=== PATIENT | female | born 1945 | race Caucasian/White ===

== ENCOUNTER 2016-08-19 22:00 | Inpatient (IN) | payer MEDICARE, OTHER ==
--- NOTE | ~2016-08-19 | OP ---
Record Of Operation [facility] [address] [place]. [address] NAME: ANIYAH ALEXANDER : 41 STATUS : ADM IN PAT#: [id number] AGE: 70 ADM/REG DATE : 08/20/16 MR#: [id number] REPORT SERV DATE: 08/21/16 DICTATED BY: KUMAR BEAR DATE: 08/21/16 REPORT STATUS : Draft TRANSCRIBED BY: EDOUARD DATE: 08/21/16 DATE OF PROCEDURE: 08/21/2016 TITLE OF PROCEDURE: Central venous catheter placement. INDICATION: Shock. PROCEDURE NOTE: The patient was placed in Trendelenburg position. The patient's left neck was prepped and draped in sterile fashion. The patient was on Precedex at the time of the procedure for anesthesia. A triple-lumen catheter was introduced into the left internal jugular vein using the Seldinger technique and under ultrasound guidance. The catheter was threaded smoothly over the guidewire, and appropriate blood return was obtained. Guidewire was confirmed to be in the vein via ultrasound. Each lumen of the catheter was evacuated of air and flushed with sterile saline. Catheter was then sutured in place to the skin and sterile dressing applied. I was present for the entire procedure. The patient tolerated the procedure well. There were no complications. Chest x-ray was ordered to assess for pneumothorax. ERIC/EDOUARD Kumar Bear MD / [id number] CC: Shin Serrano M.D.
--- NOTE | ~2016-08-19 | DS ---
Discharge Summary [id number] [facility]. [address] NAME: ANIYAH ALEXANDER : 41 STATUS : ADM IN PAT#: [id number] AGE: 70 ADM/REG DATE : 08/20/16 MR#: [id number] REPORT SERV DATE: 09/01/16 DICTATED BY: ROMAN PEREIRA DATE: 09/01/16 REPORT STATUS : Draft TRANSCRIBED BY: EDOUARD DATE: 09/01/16 ADMISSION DATE: 08/20/2016 DISCHARGE DATE: 09/01/2016 Please see prior interim discharge summary, continuation from that at this point. DISCHARGE DIAGNOSES: 1. Acute on chronic systolic heart failure, on milrinone gtt. 2. Acute on chronic hypoxic respiratory failure, at baseline at 2 L nasal cannula. 3. CREST. 4. Severe pulmonary hypertension. 5. Esophageal stricture. Follow up with GI as an outpatient. 6. Chronic kidney disease stage 2. 7. Hypothyroidism. 8. Chronic pain. 9. Coronary artery disease. 10.Pulmonary fibrosis. DISCHARGE MEDICATIONS: Include: 1. Xanax 1 mg p.o. at bedtime. 2. Artificial tears daily p.r.n. 3. Aspirin 81 mg p.o. daily. 4. Bumex 1 mg p.o. daily. 5. Plavix 75 mg p.o. daily. 6. Vitamin D3, 5000 units p.o. daily. 7. Pepcid 40 mg p.o. at bedtime. 8. Synthroid 88 mcg p.o. daily. 9. Lopressor 25 mg p.o. b.i.d. 10.Zoloft 50 mg p.o. at bedtime. 11.Sodium bicarb 25 p.o. daily. 12.Vitamin A 10,000 units p.o. daily. 13.OxyContin 40 mg p.o. b.i.d. 14.Prednisone taper as directed. 15.DuoNeb 3 mL inhaled q.6 hours while awake. 16.Dulera 200/5 mcg two puffs inhaled b.i.d. 17.GenTeal apply ophthalmic at bedtime. 18.Colace 100 mg p.o. daily. 19.Milrinone gtt. 20.Lutein 40 mg p.o. daily. 21.Probiotic p.o. daily. 22.Nitroglycerin spray p.r.n. chest pain. 23.Stress B liquid 50 mL p.o. daily. 24.Vitamin C 1000 mg p.o. daily. 25.Silver Shield inhaled at bedtime. DISPOSITION AND FOLLOWUP: The patient medically stable for discharge. Follow up with Discharge Summary [address] [place]. [address] NAME: ANIYAH ALEXANDER : 41 STATUS : ADM IN PAT#: [id number] AGE: 70 ADM/REG DATE : 08/20/16 MR#: [id number] REPORT SERV DATE: 09/01/16 DICTATED BY: ROMAN PEREIRA DATE: 09/01/16 REPORT STATUS : Draft TRANSCRIBED BY: EDOUARD DATE: 09/01/16 primary care physician in one week. Follow up with Cardiology as directed and Gastroenterology as directed. The patient will be discharged on milrinone gtt. PICC line was placed on 08/31/2016. HISTORY AND PHYSICAL: Per initial assessment. DISCHARGE VITALS: Temperature 97.8, heart rate 85, blood pressure 130/59, respiratory rate 18, O2 saturation 95 on 2 L nasal cannula. IMAGING: Chest x-ray, 08/29/2016, significant interval reduction in perihilar edema over the last 48 hours. Pulmonary fibrosis. HOSPITAL COURSE: Please see prior interim discharge summary for further details. Follow with Cardiology and recommended milrinone home infusion, which the patient was agreeable to. A PICC line was placed on 08/31. Case Management arranged home infusion. As directed above, the patient will follow up with primary care physician in one week. Follow up with Cardiology as directed. Follow up with GI as an outpatient for further management and possible dilatation of esophageal stricture. Instructed to take all medications as above. Further close management as an outpatient. Total time for discharge planning 35 minutes. JOSE JUAN/EDOUARD Eloisa Riley MD / [id number] CC: MD Preet Lubin M.D.
--- NOTE | ~2016-08-19 | HP ---
History And Physical [address] [place]. [address] NAME: ANIYAH ALEXANDER : 41 STATUS : ADM IN [facility]#: [id number] AGE: 70 ADM/REG DATE : 08/20/16 MR#: [id number] REPORT SERV DATE: 08/20/16 DICTATED BY: SHALOM VENEGAS DATE: 08/20/16 REPORT STATUS : Draft TRANSCRIBED BY: MODL DATE: 08/20/16 DATE OF ADMISSION: 08/20/2016 CHIEF COMPLAINT: Shortness of breath. HISTORY OF PRESENT ILLNESS: This is a 70-year-old female with a history of pulmonary fibrosis and is followed by Dr. Sameer Yousif, history of chronic systolic congestive heart failure, essential hypertension, anxiety disorder, and esophageal strictures followed by Dr. Horvath, who presents to the emergency room at [facility] with the above-mentioned complaint. History is obtained from the patient, and reviewing data available on the [facility] System. According to Mrs. Alexander, she had been ill for about a xrry-zka-[id number]-half now saying that she had a viral illness about a week ago and it took five to seven days after which she feels she developed a pneumonia. She started having shortness of breath initially with exertion and then towards the 24 hours or so, she was short of breath even at rest. She also started having fever up to 102 degrees Fahrenheit in the last 24 hours and had some shaking chills as well. During this time, she also had a cough which was productive of dirty-looking sputum according to her which she then describes as being milky whitish. She finally decided to come to the emergency room to be evaluated. In the emergency room, a chest x-ray revealed bilateral infiltrates, but an EKG was within normal limits. She had hypoxia upon presentation along with a febrile illness, and Hospitalist Service is asked to admit her for further evaluation and treatment. At the time of my evaluation, her blood pressure has dropped from 145/66 upon arrival to 102/59. She had hypoxia on room air, although with oxygen saturations return. She continued to have dyspnea at rest. She denied any chest pain or palpitations. She had no orthopnea. She did have a cough, which was essentially productive of greenish sputum here. No hemoptysis or night sweats or weight loss. She has not had any falls or loss of consciousness recently, but did have fever and chills going up to 102 degrees as mentioned above. She denied any nausea, vomiting, diarrhea, hematemesis, hematochezia, or hematuria. No other history of recent travel or exposure other than those mentioned above. PAST MEDICAL HISTORY: Significant for history of essential hypertension, esophageal strictures, chronic hypoxic respiratory failure on home oxygen at 3 L/minute. She also has history of pulmonary fibrosis followed by Dr. Yousif and history of chronic systolic heart failure. SOCIAL HISTORY: She denied any tobacco use, alcohol use, recreational drug use. 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 FAMILY HISTORY: Noncontributory. MEDICATIONS: Her medications at home were reviewed by me in the chart today and reordered by me. History And Physical [address] [address] NAME: ANIYAH ALEXANDER : 41 STATUS : ADM IN [facility]#: [id number] AGE: 70 ADM/REG DATE : 08/20/16 MR#: [id number] REPORT SERV DATE: 08/20/16 DICTATED BY: SHALOM VENEGAS DATE: 08/20/16 REPORT STATUS : Draft TRANSCRIBED BY: EDOUARD DATE: 08/20/16 REVIEW OF SYSTEMS: As in history of present illness. All other systems were reviewed in detail and are quite unremarkable. PHYSICAL EXAMINATION: GENERAL: This is a pleasant 70-year-old, not in any acute distress. HEENT: Her head is atraumatic and normocephalic. She is alert, awake, oriented to time, place, and person. Her pupils are equal, reacting to light and accommodating. External ocular muscles are intact. Membranes are moist and pink. Sclerae are nonicteric. NECK: Supple with no jugular venous distention, lymphadenopathy, or thyromegaly. LUNGS: Auscultation of her lungs revealed bibasilar crackles with no expiratory wheezes. There were no rales, especially there were no Velcro rales. Trachea appeared to be in the midline. HEART: Heart sounds were regular with no murmurs, rubs, or gallops. ABDOMEN: Soft and nontender. Bowel sounds are present. EXTREMITIES: No cyanosis, clubbing, or edema. NEUROLOGIC: Grossly intact. No focal sensory or motor deficits. Higher functions appeared intact. Gait was not examined. VITAL SIGNS: Today showed a temperature of 102.4 upon arrival, pulse was 86, respirations 22 a minute, and blood pressure upon arrival was 145/66. Oxygen saturations were 97%, breathing 4 L of oxygen via nasal cannula. LABORATORY DATA: Reviewed on the [facility] system showed a sodium of 136, potassium 4.4, chloride 106, CO2 of 27, BUN was 19 with a creatinine of 0.84, and blood glucose was 118. Her alkaline phosphatase, ALT, and AST were within normal limits. Her lipase was 121. Her lactate was 1.2 today. CBC showed a white blood cell count of 8400, hemoglobin was 10, hematocrit 31.7, and platelet count was 201,000. Her prothrombin time was 13.8 with an INR of 1.1 today. Influenza A and B were negative today. Urinalysis was unremarkable today. Films of the chest x-ray were reviewed by me on the PACS today and interpreted by me. Per my interpretation, bibasilar infiltrates, right greater than left, with no cardiomegaly. A 12-lead EKG done in the emergency room was reviewed and interpreted by me. There is normal sinus rhythm with a rate of [address]-T changes. IMPRESSION: 1. Shortness of breath. 2. Bilateral pneumonia. 3. Hypoxemia. 4. Hypotension. 5. Possible sepsis. History And Physical [address] [address] NAME: ANIYAH ALEXANDER : 41 STATUS : ADM IN [facility]#: [id number] AGE: 70 ADM/REG DATE : 08/20/16 MR#: [id number] REPORT SERV DATE: 08/20/16 DICTATED BY: SHALOM VENEGAS DATE: 08/20/16 REPORT STATUS : Draft TRANSCRIBED BY: MODL DATE: 08/20/16 6. History of pulmonary fibrosis. 7. Chronic systolic heart failure. 8. Essential hypertension. PLAN: We will admit Mrs. Alexander to the Hospitalist Service with telemetry in the Medical Intermediate Care Unit. Since my initial evaluation of her, she has become increasingly hypotensive and this required multiple fluid challenges. Her pressures have responded to volume replacement, but we will continue to monitor her situation. She would benefit from a central line placement, but she is on Plavix and I am hesitant to do that right now. We will go ahead and order a PICC line to be placed in the morning. Meanwhile, we will monitor her pressures closely, repeat lactate and procalcitonin levels. We will also check her cortisol level and replace if necessary. Meanwhile, we will maximize the bronchodilator treatments, continue supplemental oxygen therapy, and also add mucolytics to her regimen. Given her history of pulmonary fibrosis and there are bilateral infiltrates present on the chest x-ray, we will go ahead and get a CTA of her chest to further evaluate abnormality seen on the chest x-ray. I believe her infiltrates may be secondary to infection rather than pulmonary fibrosis. We will review the chest CT as soon as it is done. She may need IV pressors if her mean arterial pressures should fall below 65 mmHg, but right now it is in the 70-72 range. We will give another liter of lactated Ringer's bolus with some response and we will repeat another liter as well. She is making urine and we will monitor her closely. It is best she would be admitted in the Medical Intermediate Care Unit. Meanwhile, we will continue the rest of her home medications and treatments, and please see the orders for details. She will be on unfractionated heparin for DVT prophylaxis while here. I have discussed the above plans with the patient. Her questions were answered and she is agreeable to the above recommendations. Hospitalist Service will be following her during her stay here. /MODL Shalom Venegas M.D. / [id number] CC: David Mendez M.D.
--- NOTE | ~2016-08-19 | IDS ---
Interim Discharge Summary [facility] [address] [place]. [address] NAME: ANIYAH ALEXANDER : 41 STATUS : ADM IN LOCATED WITHIN [facility]#: [id number] AGE: 70 ADM/REG DATE : 08/20/16 MR#: [id number] REPORT SERV DATE: 08/28/16 DICTATED BY: ARIAN GIBBONS DATE: 08/28/16 REPORT STATUS : Draft TRANSCRIBED BY: MODKimani DATE: 08/28/16 ADMISSION DATE: 08/20/2016 DISCHARGE DATE: DIAGNOSES: 1. Acute on chronic hypoxic respiratory failure. 2. Acute on chronic systolic heart failure. 3. Septic shock. 4. Right upper and right lower lobe pneumonia. 5. Acute kidney injury. 6. Esophageal dilation. 7. Severe pulmonary hypertension. 8. CREST. PROCEDURES: Endotracheal intubation on 08/21/2016, left internal jugular vein triple-lumen catheter placed 08/21/2016. IV drips. The patient is currently on Milrinone drip per Cardiology. CONSULTANTS: Cardiology Dr. Mcenil. DESCRIPTION: Please see initial history and physical by Dr. Raymundo on August [address] Bear's critical care consultation on August 21. The patient was sent to the ICU, in respiratory failure requiring intubation and mechanical ventilation. Also had to be on pressors for septic shock. The patient was on broad-spectrum antibiotics that include vancomycin and Zosyn. Cultures from the blood and sputum did not grow anything, so the vancomycin was discontinued pretty early on and the patient completed a complete course of 7 days of Zosyn. Pressors mainly Levophed. Eventually she was able to be weaned off. A 2D echocardiogram on this admission showed evidence of worsening systolic heart failure with EF of 25% to 30%, poor LV function, and also there was significant decreased function of the right ventricle and severe pulmonary hypertension and moderate to severe tricuspid regurgitation. The patient was able to successfully be extubated before I came on service this week. I reviewed her echocardiogram and decided to consult Cardiology. The patient has history of coronary artery disease and stents in the past. Dr. Mcneil came by and put the patient on Milrinone drip and has been on that for the past few days. He said it was okay for this patient to go to the floor on the Milrinone. She does have what looks like going back through her old CT scan before I came on service, evidence of esophageal dilation and fluid in the esophagus. Before the patient is discharged since she is more stable, the patient should probably see GI doctor to see if the patient has ever had an EGD or in case she needed to be scoped before discharge. The last EGD that I see is from March 2016, showing a benign-appearing esophageal stricture, erosive esophagitis, hiatal hernia, and the esophagus was dilated at that time. The patient also has a history of CREST syndrome and what appears to be some interstitial fibrosis based on CAT scan. She is currently going for a telemetry bed and care will be picked up by the hospitalist service upon transfer. Interim Discharge Summary [address] [place]. [address] NAME: ANIYAH ALEXANDER : 41 STATUS : ADM IN LOCATED WITHIN [facility]#: [id number] AGE: 70 ADM/REG DATE : 08/20/16 MR#: [id number] REPORT SERV DATE: 08/28/16 DICTATED BY: ARIAN GIBBONS DATE: 08/28/16 REPORT STATUS : Draft TRANSCRIBED BY: MODL DATE: 08/28/16 CEP/EDOUARD Arian Gibbons DO / [id number] CC: David Duron M.D.
--- NOTE | ~2016-08-19 | CN ---
Consultation Report [facility] [address] [place]. [address] NAME: ANIYAH ALEXANDER : 41 STATUS : ADM IN PAT#: [id number] AGE: 70 ADM/REG DATE : 08/20/16 MR#: [id number] REPORT SERV DATE: 08/29/16 DICTATED BY: HARJINDER MORALES DATE: 08/29/16 REPORT STATUS : Draft TRANSCRIBED BY: MODL DATE: 08/29/16 CONSULT DATE OF CONSULTATION: This patient is known to me with CREST syndrome. She has a severe grade 4 erosive esophagitis and stricture formation. She gets dilated about every 4 to 6 months. Last dilatation was March 2016. She is on high dose PPI. Apparently she was admitted here with septic shock and pneumonia. She also has poor cardiac function. She has pulmonary hypertension. She seems at this point that she is swallowing reasonably well. It is not clear if she aspirated this time. She was ventilator-dependent for a few days here and is now doing better. PHYSICAL EXAMINATION: GENERAL: On exam, she is sitting up. VITAL SIGNS: Blood pressure 110/70. ABDOMEN: Quite soft. Nontender. IMPRESSION: Patient with connective tissue disease such as CREST or actually may have more involvement than just the CREST; may have more scleroderma as opposed to the lung problem. Has been doing well with dilatation. Right now she is swallowing reasonably well on high- dose PPI. She probably needs dilatation at some point, but I am unclear whether that should be accomplished here or as an outpatient. Allow maximal medical tune-up. PLAN: We will discuss with the care team. My feeling now would be that it might be better to let her have medical tune-up and see how she does given the fact that she had a recent cardiopulmonary issues. She seems to be doing well with a soft diet and we need to put her through the sedation for an endoscopic procedure which could require re-intubation. MG/MODKimani Harjinder Morales M.D. / [id number] CC: Shin Serrano M.D.
--- NOTE | ~2016-08-19 | OP ---
Record Of Operation [facility] [address] [place]. [address] NAME: ANIYAH ALEXANDER : 41 STATUS : ADM IN [facility]#: [id number] AGE: 70 ADM/REG DATE : 08/20/16 MR#: [id number] REPORT SERV DATE: 08/21/16 DICTATED BY: KUMAR BEAR DATE: 08/21/16 REPORT STATUS : Draft TRANSCRIBED BY: EDOUARD DATE: 08/21/16 DATE OF PROCEDURE: 08/21/2016 TITLE OF PROCEDURE: Endotracheal intubation. INDICATION: Respiratory failure. PROCEDURE NOTE: The patient was placed in a flat position. Sedation was obtained using a 100 mg of propofol. The patient was easily ventilated using an Ambu bag. The GlideScope was used and inserted into the oropharynx, at which time, there was a grade 2 view of the vocal cords. A 7.[place] endotracheal tube was inserted and visualized going through the vocal cords. The stylet was removed. Colorimetric change was visualized on the CO2 meter. Breath sounds were heard in both lung vigil bilaterally. Endotracheal tube was placed at 23 cm, measured at the teeth. I was present for the entire procedure. Chest x-ray is ordered to assess for pneumothorax and verify endotracheal tube placement. The patient tolerated the procedure well, and there were no complications. ERIC/EDOUARD Kumar Bear MD / [id number] CC: Shin Serrano M.D.
--- NOTE | ~2016-08-19 | CN ---
Consultation Report [facility] [address] [place]. [address] NAME: ANIYAH ALEXANDER : 41 STATUS : ADM IN [facility]#: [id number] AGE: 70 ADM/REG DATE : 08/20/16 MR#: [id number] REPORT SERV DATE: 08/26/16 DICTATED BY: YVES MCNEIL DATE: 08/26/16 REPORT STATUS : Draft TRANSCRIBED BY: MODL DATE: 08/26/16 CARDIOLOGY CONSULTATION DATE OF CONSULTATION: HISTORY OF PRESENT ILLNESS: The patient is a 70-year-old white female with a history of coronary artery disease. The patient had a cardiac catheterization by Dr. Beard in 2013 that showed patent stents in the left anterior descending coronary artery and left circumflex coronary artery. At that time, her left ventricular ejection fraction was 45%. The patient presented on this admission with pneumonia, respiratory failure, and sepsis. She is currently on antibiotics, but no pressors or inotropes. Her BNP has gone up to 3187 with a previous BNP being 2011. The patient denies chest pain. Echocardiogram done during this admission shows a left ventricular ejection fraction of 25% to 30%. PAST MEDICAL HISTORY: Remarkable for coronary artery disease with multivessel stenting, COPD, hypertension, and chronic lung disease. SOCIAL HISTORY: The patient does not smoke. FAMILY HISTORY: Positive for coronary artery disease. REVIEW OF SYSTEMS: The patient has a nonproductive cough. She does not have any nausea, vomiting, diarrhea, or dysuria. PHYSICAL EXAMINATION: VITAL SIGNS: Blood pressure is 150/70, heart rate is 80 and regular, respirations 18 and mildly dyspneic. ENT: Unremarkable. NECK: Shows no jugular venous distention with good carotid upstroke. CHEST: Remarkable for basilar rales. CARDIOVASCULAR: The PMI is lateral to mid clavicular line. S1 is normal. S2 is narrowly split. An S3 is present. ABDOMEN: Soft, nontender with normal bowel sounds. EXTREMITIES: Show no cyanosis, clubbing, or edema. SKIN: Warm and dry with no pallor or icterus. NEURO/PSYCH: The patient is oriented x3 with appropriate affect. LABORATORY DATA: BUN is 19, creatinine 0.84, potassium is 4.4. Hematocrit is 33.9. EKG shows sinus rhythm with an inferior scar and nonspecific ST-T changes. IMPRESSION: 1. Acute on chronic systolic congestive heart failure. 2. Coronary artery disease with a history of multivessel stenting. Consultation Report [address] [place]. [address] NAME: ANIYAH ALEXANDER : 41 STATUS : ADM IN PAT#: [id number] AGE: 70 ADM/REG DATE : 08/20/16 MR#: [id number] REPORT SERV DATE: 08/26/16 DICTATED BY: YVES MCNEIL DATE: 08/26/16 REPORT STATUS : Draft TRANSCRIBED BY: DEOUARD DATE: 08/26/16 3. Pneumonia and sepsis. PLAN: 1. We will begin milrinone and give IV diuretics. 2. Consider RUDY inhibitor or angiotensin converting enzyme inhibitor if blood pressure remains stable. Thank you very much for this consultation. FLORIN/EDOUARD Yves Mcneil M.D., F.A.C.C. / [id number] CC: David Duron M.D.
--- NOTE | ~2016-08-19 | CN ---
Consultation Report [facility] [address] [place]. [address] NAME: ANIYAH ALEXANDER : 41 STATUS : ADM IN PAT#: [id number] AGE: 70 ADM/REG DATE : 08/20/16 MR#: [id number] REPORT SERV DATE: 08/21/16 DICTATED BY: KUMAR BEAR DATE: 08/21/16 REPORT STATUS : Draft TRANSCRIBED BY: MODL DATE: 08/21/16 CONSULT NOTE DATE OF CONSULTATION: 08/21/2016 REASON FOR CONSULTATION: Respiratory failure. HISTORY OF PRESENT ILLNESS: The patient is a 70-year-old white female with a past medical history of chronic hypoxic respiratory failure thought to be secondary to chronic aspiration with possible underlying interstitial fibrosis as well as a history of crest syndrome and history of chronic esophageal strictures who presented to the emergency room yesterday on 08/20/2016 with about a week, week and a half of illnesses initially started as a viral upper respiratory tract infection symptoms and then progressed to worsening shortness of breath for the last day or two accompanied by fevers up to 102 degrees as well as shaking, chills, and a cough productive of dirty looking sputum, which is also at times milky white. The patient came to the emergency room yesterday, and at that time, had a chest x-ray showing bilateral infiltrates. She was placed on empiric antibiotics, admitted to the Hospitalist Service in the [facility], and was observed overnight. Today, apparently, she initially was doing well and then as the evening progressed, she slowly became more hypoxic and short of breath. I was called to evaluate the patient, and when I arrived, she was on BiPAP and had a respiratory rate of about 50 and was barely maintaining saturations in the high 80s. I elected at that time to move her to the Medical Intensive Care Unit and intubate the patient (see separate dictated intubation note) as well as place a central line for shock status post intubation (see separate dictated central venous catheter placement note). The patient now is in the Intensive Care Unit under my care for respiratory failure and shock. PAST MEDICAL HISTORY: 1. Chronic hypoxic respiratory failure. 2. Chronic aspiration. 3. Questionable history of underlying interstitial fibrosis. 4. History of crest syndrome. 5. Fibromyalgia. 6. Systolic congestive heart failure. 7. History of esophageal stricture, status post dilatation in March 2016. 8. Obstructive sleep apnea. 9. Chronic pain. 10.Coronary artery disease, status post PCI x6. 11.Hypothyroidism. 12.Gastroesophageal reflux disease. 13.Chronic anxiety. 14.Hypertension. 15.History of hysterectomy. 16.History of cyst removal. Consultation Report [facility] [id number] [place]. [address] NAME: ANIYAH ALEXANDER : 41 STATUS : ADM IN [facility]#: [id number] AGE: 70 ADM/REG DATE : 08/20/16 MR#: [id number] REPORT SERV DATE: 08/21/16 DICTATED BY: KUMAR BEAR DATE: 08/21/16 REPORT STATUS : Draft TRANSCRIBED BY: EDOUARD DATE: 08/21/16 ALLERGIES: INCLUDE SULFA AND CLARITHROMYCIN. HOME MEDICATIONS: See medication reconciliation form. SOCIAL HISTORY: Lives with her . No tobacco, alcohol, or IV drug abuse. FAMILY HISTORY: Per the , no family history of lung disease or coronary disease. REVIEW OF SYSTEMS: Unable to obtain secondary to intubation and sedation. PHYSICAL EXAMINATION: VITAL SIGNS: Temperature 98.8, heart rate 130, respiratory rate 24, and blood pressure 68/42. GENERAL: Now sedated and intubated. HEENT: Pupils equal, round, and reactive to light. ET tube in place. NECK: Supple. Nontender. No lymphadenopathy. No thyromegaly. No jugular venous distention. LUNGS: Coarse breath sounds bilaterally. No wheezes or crackles throughout. CARDIOVASCULAR: Tachycardic. No murmurs, rubs, or gallops. ABDOMEN: Soft, nontender, nondistended. Positive bowel sounds. No hepatosplenomegaly. EXTREMITIES: No cyanosis, clubbing, or edema. NEURO: Sedated. PSYCH: Unable to assess. LABS AND IMAGING: Chest x-ray, status post intubations shows central venous line and ET tube in good position. She has multifocal diffuse bilateral infiltrates. Post intubation blood gas with a pH of 7.34, pCO2 of 41, and PO2 of 140. Metabolic profile unremarkable. CBC with a white count of 5, hemoglobin of 10. Urine Strep pneumo antigen negative. Urine Legionella antigen negative. ASSESSMENT AND PLAN: The patient is a 70-year-old female with past medical history of chronic aspiration with chronic hypoxic respiratory failure, history of CREST syndrome, and coronary disease, who presents with several days of shortness of breath, productive cough, and fevers, thought to be pneumonia and now with hypoxic respiratory failure, acute respiratory distress syndrome, and shock. 1. Acute hypoxic respiratory failure. The patient has evidence of acute respiratory distress syndrome likely secondary to pneumonia. She was initially on Rocephin and azithromycin. Review of the records show that she was in the hospital just about three months ago so I am going to broaden out her coverage, change her to vancomycin, Zosyn, and continue the azithromycin so that we cover for aspiration, possible hospital acquired pneumonia, as well as community-acquired pneumonia. We will get a sputum culture now that she is intubated. I currently have her on high PEEP of a PEEP of 10 and FiO2 of 100%. We will wean her FiO2 tonight as tolerated. We will decrease her Consultation Report [facility] [id number] [facility] [place]. [address] NAME: ANIYAH ALEXANDER : 41 STATUS : ADM IN [facility]#: [id number] AGE: 70 ADM/REG DATE : 08/20/16 MR#: [id number] REPORT SERV DATE: 08/21/16 DICTATED BY: KUMAR BEAR DATE: 08/21/16 REPORT STATUS : Draft TRANSCRIBED BY: EDOUARD DATE: 08/21/16 tidal volume further to put her on lung protective ventilation for her ARDS. We will get a followup chest x-ray in the morning. I will also like to place her on steroids for possible severe community-acquired pneumonia as well as early ARDS as there is some data to support the use of steroids in both of these cases. 2. Shock. Shortly after intubation, the patient's blood pressure dropped to systolic in the 60s. Currently, giving her a fluid bolus. On my bedside ultrasound, her IVC was 1.7 cm but had collapsing to 0.8 cm on inspiration suggesting that she would be a volume responder. With this fluid bolus, I am also going to start a Levophed drip to maintain her MAP greater than 65. Likely, she is just volume depleted, but this could be a component of septic shock as well. If needed, we will add further vasopressor therapy tonight. 3. The patient will be on heparin for DVT prophylaxis and Protonix for gastrointestinal prophylaxis. 4. The patient's was updated at the bedside. The severity of the illness was discussed, and he understands. She remains full code at this time. 5. Total critical care time spent on this patient not including endotracheal intubation or central venous catheter placement was 50 minutes. ERIC/EDOUARD Kumar Bear MD / [id number] CC: Shin Serrano M.D.
[2016-08-19 17:35] LABS: BASOPHILS 0.1 %; BASOPHILS ABSOLUTE 0.01 10/3/uL (0.0-0.16); EOSINOPHILS 1.9 %; EOSINOPHILS ABSOLUTE 0.16 10/3/uL (0.0-0.53); HEMATOCRIT 31.7 % (36.0-48.0); IMMATURE GRANULOCYTES 0.2 %; IMMATURE GRANULOCYTES ABSOLUTE 0.02 10/3/uL (0.0-0.11); LYMPHOCYTES ABSOLUTE 1.26 10/3/uL (0.67-4.30); MEAN CORPUSCULAR HEMOGLOB 30.9 pg (26.0-34.0); MEAN CORPUSCULAR VOLUME 97.8 fL (80-100); MEAN PLATELET VOLUME 10.4 fL (9.2-13.0); MONOCYTES 5.5 %; MONOCYTES ABSOLUTE 0.46 10/3/uL (0.21-1.20); NEUTROPHILS 77.3 %; NEUTROPHILS ABSOLUTE 6.48 10/3/uL (2.02-8.40); RBC DISTRIBUTION WIDTH 15.9 % (12.0-16.0); RED CELL COUNT 3.24 10/6/uL (4.0-5.6); WHITE BLOOD CELLS 8.4 10/3/uL (4.5-10.5)
[2016-08-19 17:36] LABS: MANUAL DIFF NO %; MEAN CORPUS HGB CONC 31.5 g/dL (32.0-36.0); PLATELET COUNT 201 10/3/uL (150-400)
[2016-08-19 17:44] LABS: INTERNATIONAL NORMAL RATI 1.1 UNITS (-); PARTIAL THROMBO TIME 30.6 SEC (22.5-37.2); PROTIME (NOT ORD) 13.8 SEC (12.0-14.5)
[2016-08-19 17:57] LABS: LACTATE 1.2 MMOL/L (0.3-2.4)
[2016-08-19 17:58] LABS: A/G RATIO 0.8 (0.7-1.9); ALBUMIN 3.3 G/DL (3.5-5.0); ALKALINE PHOSPHATASE 104 U/L (45-117); BUN (BLOOD UREA NITROGEN) 19 MG/DL (6-23); CALCIUM, SERUM 8.4 MG/DL (8.5-10.4); CHLORIDE, SERUM 106 MMOL/L (96-112); CO2 (CARBON DIOXIDE) 27 MMOL/L (24-34); CREATININE 0.84 MG/DL (0.55-1.02); GFR AFRICAN AMERICAN 80 ML/MIN (>=60); GFR NON AFRICAN AMERICAN 69 ML/MIN (>=60); GLOBULIN 3.9 G/DL (2.5-4.1); GLUCOSE, SERUM 118 MG/DL (60-99); POTASSIUM, SERUM 4.4 MMOL/L (3.5-5.3); SGOT(AST) 25 U/L (5-40); SGPT(ALT) 16 U/L (5-65); SODIUM, SERUM 136 MMOL/L (135-148); TOTAL BILIRUBIN 0.4 MG/DL (0-1.2); TOTAL PROTEIN 7.2 G/DL (6.0-8.5)
[2016-08-19 20:54] LABS: INFLUENZA A SCREEN NEGATIVE (NEGATIVE); INFLUENZA B SCREEN NEGATIVE (NEGATIVE)
[2016-08-19 21:29] LABS: WBC (NOT ORDERED) (RFLEX) 0 (0-5)
[2016-08-19 21:39] LABS: ASCORBIC ACID (UR NOT ORDER) 40 (NEG); BILIRUBIN, URINE NEGATIVE (NEG); ER URINALYSIS TAT 0 Hrs 11 Mins; KETONE, URINE NEGATIVE (NEG); LEUKOCYTE ESTERASE(NOT OR NEG (NEG); NITRITE (URINE) NEG (NEG)
[~2016-08-19 22:00] MED LIST: ACCUNEB INH; ACIDOPHILU1 PO; ACIDOPHILU2 PO; ADVIL PO; ALBUTEROL5 INH; ALTA2.5 PO; ASAB PO; ATROVENTUD INH; AUG875 PO; BACTROINT TOP; BIST PO; BRILINTA90 MG PO; COUGH SYRUP PO; CYANOCOBALAMIN PO; D.O.S.100 MG PO; DELESTROGEN40 MG/ML IM; DEMA20 PO; DIL2TAB PO; DSS PO; DUONEB INH; GENTEA1 OP; GENTEA2 OPH; GENTEAL 15 ML O15 ML OPH; GENTEAL0.3 % OP; HALF81 PO; HYDROCODONE PO; IBU400 PO; L20 PO; L40 PO; LEVAQUIN750 MG PO; LEVOTHYROXIN88 MCG PO; LIPITOR10 PO; LOP25 PO; LOP50 PO; LORTAB10 PO; LUTEIN1 CAP PO; LUTEIN20 MG PO; MD ANDERSON PO; MEGACEUDL PO; MONODOX100 MG PO; MULTIPLE VIT PO; NEXIUM40 MG PO; NEXIUM40 PO; NITROGLYCERIN SPRAY SL; NITROMIST400 MCG SL; NITROQUICK0.4 MG SL; NITROSPRAY SL; NITROSTAT0.4 MG SL; NORV25 PO; NORV5 PO; NTG150 SL; OMNICEF300 PO; OXYCON10 PO; OXYCON40 PO; P10; P20 PO; PCET PO; PEPCID40 MG PO; PLAQ200B PO; PLAVIX PO; PRILOSEC40 MG PO; PROBIOTIC OTC PO; PROBIOTIC PO; REFRESH OPH; REFRESH OPH SO0.3 ML OPH; REFRESH1 % OP; RIFADIN150 MG PO; SB325 PO; SENTAB PO; SILVER SHIELD INH; STRESS B; STRESS B PO; SYN075 PO; SYN88 PO; SYSTAN1 OPH; T PO; TEARS NATURA OPH; VARIOUS VITAMINS; VIB100 PO; VIT B-SIX 50 MG50 MG OR; VITA10 PO; VITAMIN B 6 PO; VITAMIN B-121000 MC1 SL; VITAMIN B-6 PO; VITAMIN B-625 MG OR; VITAMIN B-625 MG PO; VITAMIN C PO; VITAMIN D1000 UNI1 PO; VITAMIN D3 PO; VITAMIN D31000 UNIT PO; VITAMIN E PO; VITC500 PO; VITE1000 PO; Vitamin C PO; X5 PO; XANAX1 MG PO; ZEGERID PO; ZEGERID1 CA1 PO; ZESTRIL40 MG PO; ZOCOR10 PO; ZOCOR20 PO; ZOL100 PO; ZOL50 PO; [UNRECOGNIZED DRUG - OTHER]; [UNRECOGNIZED DRUG - OTHER]; [UNRECOGNIZED DRUG - OTHER] INH; [UNRECOGNIZED DRUG - OTHER] OR; [UNRECOGNIZED DRUG - OTHER] PO; [UNRECOGNIZED DRUG - OTHER] PO; [UNRECOGNIZED DRUG - OTHER] PO; [UNRECOGNIZED DRUG - OTHER] PO; [UNRECOGNIZED DRUG - OTHER] TOP; [UNRECOGNIZED DRUG - OTHER] TOP
[2016-08-19] MEDS ORDERED: DSS PO (22:01)
[2016-08-19] MEDS ORDERED: L20 PO (22:01)
[2016-08-19] MEDS ORDERED: GENTEA2 OPH (22:02)
[2016-08-20 03:39] LABS: PROCALCITONIN <0.05 ng/mL (<0.5)
[2016-08-20 10:49] LABS: BASOPHILS 0.1 %; BASOPHILS ABSOLUTE 0.01 10/3/uL (0.0-0.16); EOSINOPHILS 0.1 %; EOSINOPHILS ABSOLUTE 0.01 10/3/uL (0.0-0.53); HEMATOCRIT 33.9 % (36.0-48.0); HEMOGLOBIN 10.5 g/dL (12.0-16.0); IMMATURE GRANULOCYTES 0.1 %; IMMATURE GRANULOCYTES ABSOLUTE 0.01 10/3/uL (0.0-0.11); LYMPHOCYTES 10.3 %; LYMPHOCYTES ABSOLUTE 0.72 10/3/uL (0.67-4.30); MEAN CORPUSCULAR HEMOGLOB 30.9 pg (26.0-34.0); MEAN CORPUSCULAR VOLUME 99.7 fL (80-100); MEAN PLATELET VOLUME 10.4 fL (9.2-13.0); MONOCYTES 2.2 %; MONOCYTES ABSOLUTE 0.15 10/3/uL (0.21-1.20); NEUTROPHILS 87.2 %; NEUTROPHILS ABSOLUTE 6.07 10/3/uL (2.02-8.40); PLATELET COUNT 177 10/3/uL (150-400); RBC DISTRIBUTION WIDTH 16.1 % (12.0-16.0)
[2016-08-20 10:50] LABS: MANUAL DIFF NO %
[2016-08-20 11:00] LABS: BUN (BLOOD UREA NITROGEN) 16 MG/DL (6-23); CALCIUM, SERUM 8.4 MG/DL (8.5-10.4); CHLORIDE, SERUM 113 MMOL/L (96-112); CO2 (CARBON DIOXIDE) 27 MMOL/L (24-34); CREATININE 0.76 MG/DL (0.55-1.02); GFR AFRICAN AMERICAN 91 ML/MIN (>=60); GFR NON AFRICAN AMERICAN 78 ML/MIN (>=60); GLUCOSE, SERUM 127 MG/DL (60-99); PHOSPHORUS, SERUM 2.8 MG/DL (2.5-4.5)
[2016-08-20 11:01] LABS: SODIUM, SERUM 145 MMOL/L (135-148)
[2016-08-21 05:34] LABS: BUN (BLOOD UREA NITROGEN) 14 MG/DL (6-23); CHLORIDE, SERUM 114 MMOL/L (96-112); CO2 (CARBON DIOXIDE) 25 MMOL/L (24-34); CREATININE 0.58 MG/DL (0.55-1.02); GFR AFRICAN AMERICAN 107 ML/MIN (>=60); GFR NON AFRICAN AMERICAN 92 ML/MIN (>=60); GLUCOSE, SERUM 118 MG/DL (60-99); PHOSPHORUS, SERUM 3.6 MG/DL (2.5-4.5); POTASSIUM, SERUM 4.3 MMOL/L (3.5-5.3); SODIUM, SERUM 146 MMOL/L (135-148)
[2016-08-21 06:01] LABS: BASOPHILS 0 %; EOSINOPHILS 0 %; HEMATOCRIT 33.5 % (36.0-48.0); HEMOGLOBIN 10.3 g/dL (12.0-16.0); IMMATURE GRANULOCYTES 0.2 %; IMMATURE GRANULOCYTES ABSOLUTE 0.01 10/3/uL (0.0-0.11); LYMPHOCYTES 18.8 %; MEAN CORPUS HGB CONC 30.7 g/dL (32.0-36.0); MEAN CORPUSCULAR HEMOGLOB 30.7 pg (26.0-34.0); MEAN PLATELET VOLUME 10.7 fL (9.2-13.0); MONOCYTES 5.8 %; MONOCYTES ABSOLUTE 0.31 10/3/uL (0.21-1.20); NEUTROPHILS 75.2 %; NEUTROPHILS ABSOLUTE 4.01 10/3/uL (2.02-8.40); PLATELET COUNT 164 10/3/uL (150-400); RBC DISTRIBUTION WIDTH 16.3 % (12.0-16.0); RED CELL COUNT 3.35 10/6/uL (4.0-5.6); WHITE BLOOD CELLS 5.3 10/3/uL (4.5-10.5)
[2016-08-21 06:05] LABS: MANUAL DIFF NO %
[2016-08-21 07:15] LABS: PROCALCITONIN 0.22 ng/mL (<0.5)
[2016-08-21 18:33] LABS: ALLENS TEST Pos; BE (BASE EXCESS) 1.6 MEQ/L (0 +/- 2.5); CARBOXYHEMOGLOBIN 0.3 % (0-3); DEVICE NRB; HCO3 (ACTUAL BICARBONATE) 26.6 MEQ/L (23-27); HEMOBLOGIN CONTENT 11.3 G/DL (12-16); INSTRUMENT SERIAL # 35151; METHEMOGLOBIN 0.4 % (0-3); O2 CONTENT 15.3 VOL% (18-24); OPERATOR ID 14904; PCO2 (CO2 TENSION) 43 MMHG (35-45); PO2 (O2 TENSION) 86 MMHG (79-93); SAMPLE Arterial; pH 7.41 (7.37-7.43)
[2016-08-21 21:28] LABS: ALLENS TEST Pos; BE (BASE EXCESS) -1.8 MEQ/L (0 +/- 2.5); CARBOXYHEMOGLOBIN 0.3 % (0-3); HCO3 (ACTUAL BICARBONATE) 23.3 MEQ/L (23-27); HEMOBLOGIN CONTENT 9.9 G/DL (12-16); INSTRUMENT SERIAL # 8083; METHEMOGLOBIN 0.2 % (0-3); MODE CMV; OPERATOR ID 31061; PCO2 (CO2 TENSION) 41 MMHG (35-45); PO2 (O2 TENSION) 140 MMHG (79-93); SAMPLE Arterial; TIDAL VOLUME 450 ML; pH 7.37 (7.37-7.43)
[2016-08-22 03:37] LABS: CARBOXYHEMOGLOBIN 0.5 % (0-3); HEMOBLOGIN CONTENT 13.7 G/DL (12-16); INSTRUMENT SERIAL # 8083; METHEMOGLOBIN 0.3 % (0-3); MODE CMV; O2 CONTENT 18.8 VOL% (18-24); OPERATOR ID 23712; PCO2 (CO2 TENSION) 44 MMHG (35-45); PO2 (O2 TENSION) 105 MMHG (79-93); SAMPLE Arterial; TIDAL VOLUME 400 ML; pH 7.33 (7.37-7.43)
[2016-08-22 06:03] LABS: BASOPHILS 0.1 %; BASOPHILS ABSOLUTE 0.01 10/3/uL (0.0-0.16); EOSINOPHILS 0 %; HEMATOCRIT 33.1 % (36.0-48.0); HEMOGLOBIN 10.4 g/dL (12.0-16.0); IMMATURE GRANULOCYTES 0.4 %; IMMATURE GRANULOCYTES ABSOLUTE 0.05 10/3/uL (0.0-0.11); LYMPHOCYTES 3.7 %; LYMPHOCYTES ABSOLUTE 0.52 10/3/uL (0.67-4.30); MEAN CORPUS HGB CONC 31.4 g/dL (32.0-36.0); MEAN CORPUSCULAR HEMOGLOB 31.4 pg (26.0-34.0); MEAN PLATELET VOLUME 10.8 fL (9.2-13.0); MONOCYTES 3.9 %; MONOCYTES ABSOLUTE 0.54 10/3/uL (0.21-1.20); NEUTROPHILS 91.9 %; NEUTROPHILS ABSOLUTE 12.89 10/3/uL (2.02-8.40); RBC DISTRIBUTION WIDTH 16.1 % (12.0-16.0); RED CELL COUNT 3.31 10/6/uL (4.0-5.6)
[2016-08-22 06:11] LABS: MANUAL DIFF NO %; PLATELET COUNT 259 10/3/uL (150-400)
[2016-08-22 06:23] LABS: BUN (BLOOD UREA NITROGEN) 16 MG/DL (6-23); CHLORIDE, SERUM 114 MMOL/L (96-112); CO2 (CARBON DIOXIDE) 22 MMOL/L (24-34); CREATININE 0.75 MG/DL (0.55-1.02); GFR AFRICAN AMERICAN 92 ML/MIN (>=60); GFR NON AFRICAN AMERICAN 80 ML/MIN (>=60); GLUCOSE, SERUM 163 MG/DL (60-99); PHOSPHORUS, SERUM 2.5 MG/DL (2.5-4.5); POTASSIUM, SERUM 3.2 MMOL/L (3.5-5.3); SODIUM, SERUM 148 MMOL/L (135-148)
[2016-08-22 07:10] LABS: PROCALCITONIN 0.62 ng/mL (<0.5)
[2016-08-22 09:02] LABS: POTASSIUM, SERUM 3.8 MMOL/L (3.5-5.3)
[2016-08-22 09:03] LABS: PHOSPHORUS, SERUM 3.5 MG/DL (2.5-4.5)
[2016-08-23 03:42] LABS: BE (BASE EXCESS) -3.4 MEQ/L (0 +/- 2.5); CARBOXYHEMOGLOBIN 0.3 % (0-3); HCO3 (ACTUAL BICARBONATE) 21.2 MEQ/L (23-27); HEMOBLOGIN CONTENT 9.3 G/DL (12-16); INSTRUMENT SERIAL # 35151; METHEMOGLOBIN 0.6 % (0-3); MODE CMV; O2 CONTENT 12.3 VOL% (18-24); OPERATOR ID 31061; PCO2 (CO2 TENSION) 36 MMHG (35-45); PO2 (O2 TENSION) 79 MMHG (79-93); SAMPLE Arterial; pH 7.38 (7.37-7.43)
[2016-08-23 03:43] LABS: ALLENS TEST Pos; TIDAL VOLUME 400 ML
[2016-08-23 04:09] LABS: BASOPHILS 0 %; EOSINOPHILS 0 %; HEMOGLOBIN 9.1 g/dL (12.0-16.0); IMMATURE GRANULOCYTES 0.4 %; IMMATURE GRANULOCYTES ABSOLUTE 0.05 10/3/uL (0.0-0.11); LYMPHOCYTES 4.7 %; LYMPHOCYTES ABSOLUTE 0.56 10/3/uL (0.67-4.30); MEAN CORPUS HGB CONC 31.1 g/dL (32.0-36.0); MEAN CORPUSCULAR HEMOGLOB 30.4 pg (26.0-34.0); MEAN PLATELET VOLUME 11.2 fL (9.2-13.0); MONOCYTES 2.8 %; MONOCYTES ABSOLUTE 0.33 10/3/uL (0.21-1.20); NEUTROPHILS 92.1 %; PLATELET COUNT 245 10/3/uL (150-400); RBC DISTRIBUTION WIDTH 16.3 % (12.0-16.0); RED CELL COUNT 2.99 10/6/uL (4.0-5.6); WHITE BLOOD CELLS 11.9 10/3/uL (4.5-10.5)
[2016-08-23 04:12] LABS: HEMATOCRIT 29.3 % (36.0-48.0); MANUAL DIFF NO %
[2016-08-23 04:29] LABS: BUN (BLOOD UREA NITROGEN) 18 MG/DL (6-23); CALCIUM, SERUM 8.6 MG/DL (8.5-10.4); CHLORIDE, SERUM 117 MMOL/L (96-112); CO2 (CARBON DIOXIDE) 22 MMOL/L (24-34); CREATININE 0.69 MG/DL (0.55-1.02); GFR AFRICAN AMERICAN 101 ML/MIN (>=60); GFR NON AFRICAN AMERICAN 87 ML/MIN (>=60); GLUCOSE, SERUM 138 MG/DL (60-99); PHOSPHORUS, SERUM 2.9 MG/DL (2.5-4.5); POTASSIUM, SERUM 4.2 MMOL/L (3.5-5.3); SODIUM, SERUM 149 MMOL/L (135-148)
[2016-08-23 04:30] LABS: ALBUMIN 2.3 G/DL (3.5-5.0)
[2016-08-23 11:44] LABS: A/G RATIO 0.6 (0.7-1.9); ALKALINE PHOSPHATASE 96 U/L (45-117); GLOBULIN 3.8 G/DL (2.5-4.1); PREALBUMIN 6.3 MG/DL (17.0-43.0); SGOT(AST) 40 U/L (5-40); SGPT(ALT) 24 U/L (5-65); TOTAL BILIRUBIN 0.3 MG/DL (0-1.2); TOTAL PROTEIN 6.1 G/DL (6.0-8.5)
[2016-08-23 17:49] LABS: OSMOLALITY, URINE 151 MOSM/KG (50-1200)
[2016-08-23 17:53] LABS: SODIUM, URINE 9 MEQ/L
[2016-08-24 04:01] LABS: ALLENS TEST Pos; BE (BASE EXCESS) -2.9 MEQ/L (0 +/- 2.5); CARBOXYHEMOGLOBIN 0.9 % (0-3); HCO3 (ACTUAL BICARBONATE) 21.2 MEQ/L (23-27); HEMOBLOGIN CONTENT 8.7 G/DL (12-16); INSTRUMENT SERIAL # 8083; METHEMOGLOBIN 0.2 % (0-3); MODE CMV; O2 CONTENT 11.8 VOL% (18-24); OPERATOR ID 16503; PCO2 (CO2 TENSION) 34 MMHG (35-45); PO2 (O2 TENSION) 87 MMHG (79-93); SAMPLE Arterial; TIDAL VOLUME 400 ML; pH 7.42 (7.37-7.43)
[2016-08-24 06:24] LABS: CALCIUM, SERUM 8.7 MG/DL (8.5-10.4); CHLORIDE, SERUM 116 MMOL/L (96-112); CO2 (CARBON DIOXIDE) 24 MMOL/L (24-34); CREATININE 0.77 MG/DL (0.55-1.02); GFR AFRICAN AMERICAN 89 ML/MIN (>=60); GFR NON AFRICAN AMERICAN 77 ML/MIN (>=60); GLUCOSE, SERUM 123 MG/DL (60-99); POTASSIUM, SERUM 3.5 MMOL/L (3.5-5.3); SODIUM, SERUM 148 MMOL/L (135-148)
[2016-08-24 06:25] LABS: BUN (BLOOD UREA NITROGEN) 25 MG/DL (6-23)
[2016-08-24 06:43] LABS: BASOPHILS 0.1 %; BASOPHILS ABSOLUTE 0.01 10/3/uL (0.0-0.16); EOSINOPHILS 0 %; HEMATOCRIT 29.6 % (36.0-48.0); HEMOGLOBIN 9.4 g/dL (12.0-16.0); IMMATURE GRANULOCYTES 0.9 %; IMMATURE GRANULOCYTES ABSOLUTE 0.15 10/3/uL (0.0-0.11); LYMPHOCYTES 4.2 %; LYMPHOCYTES ABSOLUTE 0.69 10/3/uL (0.67-4.30); MEAN CORPUS HGB CONC 31.8 g/dL (32.0-36.0); MEAN CORPUSCULAR HEMOGLOB 31.2 pg (26.0-34.0); MEAN CORPUSCULAR VOLUME 98.3 fL (80-100); MEAN PLATELET VOLUME 10.9 fL (9.2-13.0); MONOCYTES ABSOLUTE 0.65 10/3/uL (0.21-1.20); NEUTROPHILS 90.8 %; NEUTROPHILS ABSOLUTE 14.89 10/3/uL (2.02-8.40); NUCLEATED RED BLOOD CELLS 0.5 /100WBC (0-0); PLATELET COUNT 278 10/3/uL (150-400); RBC DISTRIBUTION WIDTH 16.6 % (12.0-16.0); RED CELL COUNT 3.01 10/6/uL (4.0-5.6); WHITE BLOOD CELLS 16.4 10/3/uL (4.5-10.5)
[2016-08-24 06:45] LABS: MANUAL DIFF NO %
[2016-08-25 04:26] LABS: BASOPHILS 0.1 %; BASOPHILS ABSOLUTE 0.02 10/3/uL (0.0-0.16); EOSINOPHILS 0 %; HEMATOCRIT 29.6 % (36.0-48.0); HEMOGLOBIN 9.3 g/dL (12.0-16.0); IMMATURE GRANULOCYTES 2.5 %; IMMATURE GRANULOCYTES ABSOLUTE 0.44 10/3/uL (0.0-0.11); LYMPHOCYTES 5.1 %; LYMPHOCYTES ABSOLUTE 0.88 10/3/uL (0.67-4.30); MEAN CORPUS HGB CONC 31.4 g/dL (32.0-36.0); MEAN CORPUSCULAR VOLUME 98.7 fL (80-100); MEAN PLATELET VOLUME 10.9 fL (9.2-13.0); MONOCYTES 4.7 %; MONOCYTES ABSOLUTE 0.81 10/3/uL (0.21-1.20); NEUTROPHILS 87.6 %; NEUTROPHILS ABSOLUTE 15.14 10/3/uL (2.02-8.40); PLATELET COUNT 309 10/3/uL (150-400); RBC DISTRIBUTION WIDTH 16.7 % (12.0-16.0); WHITE BLOOD CELLS 17.3 10/3/uL (4.5-10.5)
[2016-08-25 04:27] LABS: CALCIUM, SERUM 8.4 MG/DL (8.5-10.4); CHLORIDE, SERUM 112 MMOL/L (96-112); CO2 (CARBON DIOXIDE) 26 MMOL/L (24-34); CREATININE 0.88 MG/DL (0.55-1.02); GFR AFRICAN AMERICAN 76 ML/MIN (>=60); GFR NON AFRICAN AMERICAN 66 ML/MIN (>=60); GLUCOSE, SERUM 143 MG/DL (60-99); PHOSPHORUS, SERUM 3.2 MG/DL (2.5-4.5); POTASSIUM, SERUM 3.8 MMOL/L (3.5-5.3); SODIUM, SERUM 146 MMOL/L (135-148)
[2016-08-25 04:28] LABS: MANUAL DIFF NO %
[2016-08-25 04:29] LABS: BUN (BLOOD UREA NITROGEN) 32 MG/DL (6-23)
[2016-08-26 04:35] LABS: HEMATOCRIT 31.1 % (36.0-48.0); HEMOGLOBIN 9.9 g/dL (12.0-16.0); MEAN CORPUS HGB CONC 31.8 g/dL (32.0-36.0); MEAN CORPUSCULAR VOLUME 97.5 fL (80-100); NUCLEATED RED BLOOD CELLS 1.9 /100WBC (0-0); PLATELET COUNT 359 10/3/uL (150-400); RBC DISTRIBUTION WIDTH 16.6 % (12.0-16.0); RED CELL COUNT 3.19 10/6/uL (4.0-5.6); WHITE BLOOD CELLS 18.8 10/3/uL (4.5-10.5)
[2016-08-26 04:39] LABS: MANUAL DIFF YES %
[2016-08-26 04:40] LABS: BUN (BLOOD UREA NITROGEN) 40 MG/DL (6-23); CALCIUM, SERUM 8.7 MG/DL (8.5-10.4); CHLORIDE, SERUM 107 MMOL/L (96-112); CO2 (CARBON DIOXIDE) 34 MMOL/L (24-34); CREATININE 0.99 MG/DL (0.55-1.02); GFR AFRICAN AMERICAN 66 ML/MIN (>=60); GFR NON AFRICAN AMERICAN 57 ML/MIN (>=60); GLUCOSE, SERUM 114 MG/DL (60-99); PHOSPHORUS, SERUM 5.3 MG/DL (2.5-4.5); POTASSIUM, SERUM 3.9 MMOL/L (3.5-5.3); SODIUM, SERUM 148 MMOL/L (135-148)
[2016-08-26 05:32] LABS: BAND NEUTROPHILS 1 %; IMMATURE GRANS ABSOLUTE (CALC) 0.75 10/3/uL (0.0-0.11); LYMPHOCYTES 8 %; METAMYELOCYTES 3 %; MONOCYTES 3 %; MONOCYTES ABSOLUTE (CALC) 0.56 10/3/uL (0.21-1.20); MYELOCYTES 1 %; NEUTROPHILS ABSOLUTE (CALC) 15.98 10/3/uL (2.02-8.40); SEGMENTED NEUTROPHIL (0) 84 %; TOTAL NUCLEATED CELLS 100
[2016-08-26 05:33] LABS: ANISOCYTOSIS 1+ (5-10/OIF) (0-5/OIF); MACROCYTES 1+ (5-10/OIF) (0-5/OIF); PLATELET ESTIMATE ADQ (ADEQUATE); SPHEROCYTES OCC (0-2/OIF)
[2016-08-27 04:48] LABS: A/G RATIO 0.7 (0.7-1.9); ALKALINE PHOSPHATASE 90 U/L (45-117); BUN (BLOOD UREA NITROGEN) 40 MG/DL (6-23); CHLORIDE, SERUM 104 MMOL/L (96-112); CO2 (CARBON DIOXIDE) 31 MMOL/L (24-34); CREATININE 0.92 MG/DL (0.55-1.02); GFR AFRICAN AMERICAN 72 ML/MIN (>=60); GFR NON AFRICAN AMERICAN 62 ML/MIN (>=60); GLOBULIN 3.9 G/DL (2.5-4.1); GLUCOSE, SERUM 123 MG/DL (60-99); SGOT(AST) 42 U/L (5-40); SGPT(ALT) 40 U/L (5-65); SODIUM, SERUM 146 MMOL/L (135-148); TOTAL BILIRUBIN 0.5 MG/DL (0-1.2); TOTAL PROTEIN 6.7 G/DL (6.0-8.5)
[2016-08-27 04:50] LABS: ALBUMIN 2.8 G/DL (3.5-5.0); POTASSIUM, SERUM 4.7 MMOL/L (3.5-5.3)
[2016-08-27 04:54] LABS: HEMATOCRIT 34.5 % (36.0-48.0); HEMOGLOBIN 10.9 g/dL (12.0-16.0); MANUAL DIFF YES %; MEAN CORPUS HGB CONC 31.6 g/dL (32.0-36.0); MEAN CORPUSCULAR HEMOGLOB 31.4 pg (26.0-34.0); MEAN CORPUSCULAR VOLUME 99.4 fL (80-100); MEAN PLATELET VOLUME 10.9 fL (9.2-13.0); NUCLEATED RED BLOOD CELLS 1.1 /100WBC (0-0); PLATELET COUNT 372 10/3/uL (150-400); RBC DISTRIBUTION WIDTH 16.8 % (12.0-16.0); RED CELL COUNT 3.47 10/6/uL (4.0-5.6); WHITE BLOOD CELLS 15.6 10/3/uL (4.5-10.5)
[2016-08-27 05:17] LABS: BAND NEUTROPHILS 1 %; LYMPHOCYTES 11 %; LYMPHOCYTES ABSOLUTE (CALC) 1.72 10/3/uL (0.67-4.30); MONOCYTES 1 %; MONOCYTES ABSOLUTE (CALC) 0.16 10/3/uL (0.21-1.20); NEUTROPHILS ABSOLUTE (CALC) 13.73 10/3/uL (2.02-8.40); SEGMENTED NEUTROPHIL (0) 87 %; TOTAL NUCLEATED CELLS 100
[2016-08-27 05:18] LABS: MACROCYTES 1+ (5-10/OIF) (0-5/OIF); PLATELET ESTIMATE ADQ (ADEQUATE); POLYCHROMASIA 1+ (2-5/OIF) (0-1/OIF)
[2016-08-28 05:01] LABS: HEMATOCRIT 37.3 % (36.0-48.0); HEMOGLOBIN 11.8 g/dL (12.0-16.0); MEAN CORPUS HGB CONC 31.6 g/dL (32.0-36.0); MEAN CORPUSCULAR HEMOGLOB 31.8 pg (26.0-34.0); MEAN CORPUSCULAR VOLUME 100.5 fL (80-100); MEAN PLATELET VOLUME 10.7 fL (9.2-13.0); NUCLEATED RED BLOOD CELLS 0.9 /100WBC (0-0); PLATELET COUNT 342 10/3/uL (150-400); RBC DISTRIBUTION WIDTH 16.7 % (12.0-16.0); RED CELL COUNT 3.71 10/6/uL (4.0-5.6); WHITE BLOOD CELLS 13.8 10/3/uL (4.5-10.5)
[2016-08-28 05:06] LABS: MANUAL DIFF YES %
[2016-08-28 05:09] LABS: A/G RATIO 0.8 (0.7-1.9); ALKALINE PHOSPHATASE 87 U/L (45-117); CALCIUM, SERUM 9.1 MG/DL (8.5-10.4); CHLORIDE, SERUM 100 MMOL/L (96-112); CO2 (CARBON DIOXIDE) 35 MMOL/L (24-34); CREATININE 1.29 MG/DL (0.55-1.02); GFR AFRICAN AMERICAN 48 ML/MIN (>=60); GFR NON AFRICAN AMERICAN 41 ML/MIN (>=60); GLOBULIN 3.9 G/DL (2.5-4.1); SGOT(AST) 45 U/L (5-40); SGPT(ALT) 54 U/L (5-65); SODIUM, SERUM 142 MMOL/L (135-148); TOTAL BILIRUBIN 0.7 MG/DL (0-1.2); TOTAL PROTEIN 6.9 G/DL (6.0-8.5)
[2016-08-28 05:10] LABS: BUN (BLOOD UREA NITROGEN) 44 MG/DL (6-23); GLUCOSE, SERUM 89 MG/DL (60-99); POTASSIUM, SERUM 3.7 MMOL/L (3.5-5.3)
[2016-08-28 06:24] LABS: BAND NEUTROPHILS 3 %; EOSINOPHILS 1 %; EOSINOPHILS ABSOLUTE (CALC) 0.14 10/3/uL (0.0-0.53); IMMATURE GRANS ABSOLUTE (CALC) 0.41 10/3/uL (0.0-0.11); LYMPHOCYTES 12 %; LYMPHOCYTES ABSOLUTE (CALC) 1.66 10/3/uL (0.67-4.30); METAMYELOCYTES 2 %; MONOCYTES 2 %; MONOCYTES ABSOLUTE (CALC) 0.28 10/3/uL (0.21-1.20); MYELOCYTES 1 %; NEUTROPHILS ABSOLUTE (CALC) 11.32 10/3/uL (2.02-8.40); SEGMENTED NEUTROPHIL (0) 79 %; TOTAL NUCLEATED CELLS 100
[2016-08-28 06:25] LABS: GIANT PLATELET OCC; MACROCYTES 1+ (5-10/OIF) (0-5/OIF); PLATELET ESTIMATE ADQ (ADEQUATE); POLYCHROMASIA 1+ (2-5/OIF) (0-1/OIF)
[2016-08-29 05:04] LABS: HEMATOCRIT 35.3 % (36.0-48.0); HEMOGLOBIN 11.5 g/dL (12.0-16.0); MEAN CORPUS HGB CONC 32.6 g/dL (32.0-36.0); MEAN CORPUSCULAR HEMOGLOB 33.3 pg (26.0-34.0); MEAN CORPUSCULAR VOLUME 102.3 fL (80-100); MEAN PLATELET VOLUME 10.7 fL (9.2-13.0); PLATELET COUNT 292 10/3/uL (150-400); RBC DISTRIBUTION WIDTH 17.9 % (12.0-16.0); RED CELL COUNT 3.45 10/6/uL (4.0-5.6); WHITE BLOOD CELLS 11.8 10/3/uL (4.5-10.5)
[2016-08-29 05:06] LABS: MANUAL DIFF YES %
[2016-08-29 05:23] LABS: A/G RATIO 0.8 (0.7-1.9); ALBUMIN 2.8 G/DL (3.5-5.0); ALKALINE PHOSPHATASE 84 U/L (45-117); CALCIUM, SERUM 8.8 MG/DL (8.5-10.4); CHLORIDE, SERUM 104 MMOL/L (96-112); CO2 (CARBON DIOXIDE) 31 MMOL/L (24-34); GFR AFRICAN AMERICAN 65 ML/MIN (>=60); GFR NON AFRICAN AMERICAN 56 ML/MIN (>=60); GLOBULIN 3.7 G/DL (2.5-4.1); GLUCOSE, SERUM 78 MG/DL (60-99); POTASSIUM, SERUM 4.2 MMOL/L (3.5-5.3); SGPT(ALT) 43 U/L (5-65); SODIUM, SERUM 141 MMOL/L (135-148); TOTAL BILIRUBIN 0.6 MG/DL (0-1.2); TOTAL PROTEIN 6.5 G/DL (6.0-8.5)
[2016-08-29 05:29] LABS: BUN (BLOOD UREA NITROGEN) 35 MG/DL (6-23)
[2016-08-29 05:30] LABS: SGOT(AST) 37 U/L (5-40)
[2016-08-29 07:24] LABS: ANISOCYTOSIS 1+ (5-10/OIF) (0-5/OIF); BAND NEUTROPHILS 1 %; IMMATURE GRANS ABSOLUTE (CALC) 0.47 10/3/uL (0.0-0.11); LYMPHOCYTES 6 %; LYMPHOCYTES ABSOLUTE (CALC) 0.71 10/3/uL (0.67-4.30); MACROCYTES 1+ (5-10/OIF) (0-5/OIF); METAMYELOCYTES 3 %; MONOCYTES 7 %; MONOCYTES ABSOLUTE (CALC) 0.83 10/3/uL (0.21-1.20); MYELOCYTES 1 %; NEUTROPHILS ABSOLUTE (CALC) 9.79 10/3/uL (2.02-8.40); PLATELET ESTIMATE ADQ (ADEQUATE); SEGMENTED NEUTROPHIL (0) 82 %; TOTAL NUCLEATED CELLS 100
[2016-08-29 07:25] LABS: POLYCHROMASIA 1+ (2-5/OIF) (0-1/OIF); TOXIC GRANULATION 1+
[2016-08-30 07:21] LABS: BUN (BLOOD UREA NITROGEN) 34 MG/DL (6-23); CALCIUM, SERUM 8.7 MG/DL (8.5-10.4); CHLORIDE, SERUM 103 MMOL/L (96-112); CO2 (CARBON DIOXIDE) 29 MMOL/L (24-34); CREATININE 0.95 MG/DL (0.55-1.02); GFR AFRICAN AMERICAN 69 ML/MIN (>=60); GFR NON AFRICAN AMERICAN 60 ML/MIN (>=60); POTASSIUM, SERUM 3.4 MMOL/L (3.5-5.3); SODIUM, SERUM 138 MMOL/L (135-148)
[2016-08-30 07:22] LABS: GLUCOSE, SERUM 95 MG/DL (60-99)
[2016-08-31 07:08] LABS: BASOPHILS 0.1 %; BASOPHILS ABSOLUTE 0.01 10/3/uL (0.0-0.16); EOSINOPHILS 0.9 %; EOSINOPHILS ABSOLUTE 0.16 10/3/uL (0.0-0.53); HEMATOCRIT 31.2 % (36.0-48.0); HEMOGLOBIN 10.3 g/dL (12.0-16.0); IMMATURE GRANULOCYTES 0.5 %; IMMATURE GRANULOCYTES ABSOLUTE 0.09 10/3/uL (0.0-0.11); LYMPHOCYTES 6.1 %; LYMPHOCYTES ABSOLUTE 1.06 10/3/uL (0.67-4.30); MANUAL DIFF NO %; MEAN CORPUSCULAR HEMOGLOB 32.5 pg (26.0-34.0); MEAN CORPUSCULAR VOLUME 98.4 fL (80-100); MEAN PLATELET VOLUME 9.9 fL (9.2-13.0); MONOCYTES ABSOLUTE 0.87 10/3/uL (0.21-1.20); NEUTROPHILS 87.4 %; NEUTROPHILS ABSOLUTE 15.24 10/3/uL (2.02-8.40); PLATELET COUNT 263 10/3/uL (150-400); RBC DISTRIBUTION WIDTH 18.6 % (12.0-16.0); RED CELL COUNT 3.17 10/6/uL (4.0-5.6); WHITE BLOOD CELLS 17.4 10/3/uL (4.5-10.5)
[2016-08-31 07:22] LABS: CALCIUM, SERUM 8.9 MG/DL (8.5-10.4); CHLORIDE, SERUM 104 MMOL/L (96-112); CO2 (CARBON DIOXIDE) 29 MMOL/L (24-34); CREATININE 0.96 MG/DL (0.55-1.02); GFR AFRICAN AMERICAN 68 ML/MIN (>=60); GFR NON AFRICAN AMERICAN 59 ML/MIN (>=60); GLUCOSE, SERUM 102 MG/DL (60-99); POTASSIUM, SERUM 3.5 MMOL/L (3.5-5.3); SODIUM, SERUM 139 MMOL/L (135-148)
[2016-08-31 07:23] LABS: BUN (BLOOD UREA NITROGEN) 29 MG/DL (6-23)
[2016-09-01] MEDS ORDERED: DUONEB INH (14:42)
[2016-09-01] MEDS ORDERED: DULERA 200 MCG/13 GM INH (14:42)
[2016-09-01] MEDS ORDERED: P10 (14:48)
[2016-09-01] MEDS ORDERED: KDUR20 PO (14:50)
[2016-09-01] MEDS ORDERED: BUM1 PO (14:50)
[2016-10-29] MEDS ORDERED: PROTONIX PO (12:42)
== END 2016-09-01 16:32 | disposition home or self-care (01) | DRG 870 ==
LOC: ER 22:00 → IMCU 08-20 02:40 → MIC 08-21 20:34 → 7NO 08-29 17:05
PROVIDERS: Emergency Medicine; Hospitalist; Internal Medicine; Internal Medicine Critical Care Medicine; Internal Medicine Pulmonary Disease
PROC: 5A1955Z Respiratory Ventilation, Greater than 96 Consecutive Hours (ICD-10-PCS; principal; 2016-08-21)
PROC: 0BH17EZ Insertion of Endotracheal Airway into Trachea, Via Natural or Artificial Opening (ICD-10-PCS; 2016-08-21)
PROC: 05HN33Z Insertion of Infusion Device into Left Internal Jugular Vein, Percutaneous Approach (ICD-10-PCS; 2016-08-21)
PROC: B544ZZA Ultrasonography of Left Jugular Veins, Guidance (ICD-10-PCS; 2016-08-21)
PROC: 02HV33Z Insertion of Infusion Device into Superior Vena Cava, Percutaneous Approach (ICD-10-PCS; 2016-08-31)
PROC: 4A02X4A Measurement of Cardiac Electrical Activity, Guidance, External Approach (ICD-10-PCS; 2016-08-31)
DX: A41.9 Sepsis, unspecified organism (principal); J96.21 Acute and chronic respiratory failure with hypoxia; J18.9 Pneumonia, unspecified organism; R65.21 Severe sepsis with septic shock; I50.23 Acute on chronic systolic (congestive) heart failure; I27.2 Other secondary pulmonary hypertension; J84.10 Pulmonary fibrosis, unspecified; M34.1 CR(E)ST syndrome; I13.0 Hypertensive heart and chronic kidney disease with heart failure and stage 1 through stage 4 chronic kidney disease, or unspecified chronic kidney disease; J44.0 Chronic obstructive pulmonary disease with (acute) lower respiratory infection; Z99.81 Dependence on supplemental oxygen; Z88.2 Allergy status to sulfonamides; Z88.1 Allergy status to other antibiotic agents; Z79.899 Other long term (current) drug therapy; G47.33 Obstructive sleep apnea (adult) (pediatric); I25.10 Atherosclerotic heart disease of native coronary artery without angina pectoris; Z95.5 Presence of coronary angioplasty implant and graft; E03.9 Hypothyroidism, unspecified; K21.9 Gastro-esophageal reflux disease without esophagitis; Z90.710 Acquired absence of both cervix and uterus; Z98.890 Other specified postprocedural states; F41.9 Anxiety disorder, unspecified; M79.7 Fibromyalgia; N18.2 Chronic kidney disease, stage 2 (mild); J44.9 Chronic obstructive pulmonary disease, unspecified
CPT/HCPCS: 31720; 36569; 36600; 71010; 71020; 71275; 74000; 80048; 80053; 80069; 81001; 82533; 82805; 82962; 83605; 83690; 83735; 83880; 83935; 84100; 84132; 84134; 84145; 84300; 85025; 85610; 85730; 87040; 87070; 87205; 87449; 87641; 87804; 92610-GN; 93005; 94002; 94003; 94640; 94660; 96365; 96375; 97110-GO; 97110-GP; 97116-GP; 97162-GP; 97164-GP; 97167-GO; 97530-GP; 97535-GO; 99285; A9270-GY; C1751; C1894; C8929; C9113; G8978-CK-GP; G8978-CL-GP; G8979-CI-GP; G8979-CJ-GP; G8987-CL-GO; G8988-CK-GO; G8996-CJ-GN; G8997-CJ-GN; G8998-CJ-GN; J0456; J1630; J1720; J2260; J2405; J2543; J2920; J3010; J3370; J3411; J3475; Q9957; Q9967

== ENCOUNTER 2016-09-15 16:31 | Emergency (ER) | payer MEDICARE, OTHER ==
[2016-09-15 16:10] LABS: ASCORBIC ACID (UR NOT ORDER) NEG (NEG); BILIRUBIN, URINE NEGATIVE (NEG); ER URINALYSIS TAT 0 Hrs 19 Mins; KETONE, URINE NEGATIVE (NEG); LEUKOCYTE ESTERASE(NOT OR NEG (NEG); NITRITE (URINE) NEG (NEG); WBC (NOT ORDERED) (RFLEX) < 1 (0-5)
[2016-09-15 16:19] LABS: BASOPHILS 0.4 %; BASOPHILS ABSOLUTE 0.03 10/3/uL (0.0-0.16); EOSINOPHILS 3.4 %; EOSINOPHILS ABSOLUTE 0.28 10/3/uL (0.0-0.53); HEMATOCRIT 31.6 % (36.0-48.0); IMMATURE GRANULOCYTES 0.2 %; IMMATURE GRANULOCYTES ABSOLUTE 0.02 10/3/uL (0.0-0.11); LYMPHOCYTES 21.8 %; LYMPHOCYTES ABSOLUTE 1.77 10/3/uL (0.67-4.30); MEAN CORPUS HGB CONC 31.6 g/dL (32.0-36.0); MEAN CORPUSCULAR VOLUME 97.8 fL (80-100); MEAN PLATELET VOLUME 9.7 fL (9.2-13.0); MONOCYTES 10.6 %; MONOCYTES ABSOLUTE 0.86 10/3/uL (0.21-1.20); NEUTROPHILS 63.6 %; NEUTROPHILS ABSOLUTE 5.17 10/3/uL (2.02-8.40); PLATELET COUNT 278 10/3/uL (150-400); RBC DISTRIBUTION WIDTH 18.3 % (12.0-16.0); RED CELL COUNT 3.23 10/6/uL (4.0-5.6)
[2016-09-15 16:20] LABS: ER CBC TAT 0 Hrs 08 Mins; MANUAL DIFF NO %; WHITE BLOOD CELLS 8.1 10/3/uL (4.5-10.5)
[2016-09-15 16:25] LABS: INTERNATIONAL NORMAL RATI 1.1 UNITS (-); PROTIME (NOT ORD) 14.1 SEC (12.0-14.5)
[~2016-09-15 16:31] MED LIST changes: +BUM1 PO; +DULERA 200 MCG/13 GM INH; +KDUR20 PO
[2016-09-15 16:36] LABS: A/G RATIO 0.7 (0.7-1.9); ALBUMIN 2.8 G/DL (3.5-5.0); CALCIUM, SERUM 8.5 MG/DL (8.5-10.4); CHLORIDE, SERUM 110 MMOL/L (96-112); CREATININE 0.81 MG/DL (0.55-1.02); GFR AFRICAN AMERICAN 84 ML/MIN (>=60); GFR NON AFRICAN AMERICAN 73 ML/MIN (>=60); GLOBULIN 4.3 G/DL (2.5-4.1); GLUCOSE, SERUM 90 MG/DL (60-99); POTASSIUM, SERUM 3.9 MMOL/L (3.5-5.3); SGOT(AST) 25 U/L (5-40); SGPT(ALT) 16 U/L (5-65); SODIUM, SERUM 142 MMOL/L (135-148); TOTAL BILIRUBIN 0.4 MG/DL (0-1.2); TOTAL PROTEIN 7.1 G/DL (6.0-8.5)
[2016-09-15 16:38] LABS: ALKALINE PHOSPHATASE 109 U/L (45-117); BUN (BLOOD UREA NITROGEN) 17 MG/DL (6-23); CO2 (CARBON DIOXIDE) 21 MMOL/L (24-34)
[2016-09-15 16:39] LABS: TROPONIN I 0.05 NG/ML (<0.05)
[2016-10-29] MEDS ORDERED: PROTONIX PO (12:42)
== END 2016-09-15 18:10 | disposition home or self-care (01) ==
LOC: ER 16:31
PROVIDERS: Emergency Medicine
DX: R06.00 Dyspnea, unspecified (principal); J45.909 Unspecified asthma, uncomplicated; I10 Essential (primary) hypertension; K21.9 Gastro-esophageal reflux disease without esophagitis; Z88.2 Allergy status to sulfonamides; Z88.1 Allergy status to other antibiotic agents; Z79.82 Long term (current) use of aspirin; Z79.52 Long term (current) use of systemic steroids; Z79.899 Other long term (current) drug therapy
CPT/HCPCS: 71010; 80053; 81001; 84484; 85025; 85610; 87040; 93005; 94640; 99285; J2930